=== PATIENT | female | born 1995 | race African-American/Black ===

== ENCOUNTER 2019-03-12 04:27 | Emergency (ER) | payer OTHER, SELFPAY ==
--- NOTE | 2019-03-12 04:29 | ED.PREGNANCY ---
HPI - General Chief complaint: Urogenital-Female Stated complaint: 12 wks , bleeding and cramping Time Seen by Provider: 03/12/19 04:29 Source: patient and family Mode of arrival: Ambulatory Limitations: no limitations History of Present Illness HPI Narrative: 23-year-old female nonsmoker with benign medical history presents with her and a chief complaint of a few days of pelvic cramping and spotting. She is a at 12 weeks and has had an unremarkable thus far. She is from [place] and had her care down there LEs are. She states her bleeding started as some brownish spotting yesterday and she has changed 3 pads in the past 24 hours. Her pain comes in waves and at times is very intense and others at [employer] out. She states that moves around her lower pelvis and is not unilateral. She denies provocation or palliation. She is not dizzy nor weak or lightheaded. She denies dysuria, frequency or urgency. MD Complaint: vaginal bleeding Onset (ago): day(s) Pain Consistency: intermittent Location: pelvis Severity: moderate Quality: Aching Radiation: pelvis Relieving factors: none Exacerbating factors: none Associated symptoms: vaginal bleeding Vaginal discharge: none Vaginal bleeding: light Patient : Yes OB History - Current : no complications OB History - Previous Pregnancies: no complications care: followed by OB Related Data : 1 Para: 0 Home Medications Medication Instructions Recorded Confirmed levonorgestrel [Mirena] 52 mg INTRAU #0 ea 10/21/15 Allergies Allergy/AdvReac Type Severity Reaction Status Date / Time No Known Drug Allergies Allergy Verified 03/12/19 06:34 Review of Systems Constitutional Constitutional: Denies chills, Denies fatigue, Denies fever(s), Denies frequent falls, Denies lethargy and Denies weakness Eyes Eyes: Denies change in vision, Denies eye discharge, Denies irritation and Denies loss of vision ENT Ears, Nose, Mouth, and Throat: Denies change in voice, Denies dizziness, Denies neck pain, Denies sore throat and Denies throat swelling Cardiovascular Cardiovascular: Denies chest pain, Denies irregular heart rhythm, Denies lightheadedness, Denies palpitations, Denies dyspnea, Denies dyspnea on exertion and Denies orthopnea Respiratory Respiratory: Denies cough, Denies dyspnea, Denies dyspnea on exertion and Denies wheezing Gastrointestinal Gastrointestinal: Denies abdominal pain, Denies change in bowel habits, Denies diarrhea, Denies nausea and Denies vomiting Genitourinary Genitourinary: Reports abnormal vaginal bleeding, Denies hematuria, Denies flank pain, Denies urinary incontinence and Denies urinary urgency Musculoskeletal Musculoskeletal: Denies back pain, Denies muscle weakness, Denies neck pain, Denies numbness and Denies tingling Integumentary/Breasts Skin/Breast: Denies pruritus, Denies erythema, Denies rash and Denies wounds Neurologic Neurologic: Denies behavioral changes, Denies confusion, Denies dizziness, Denies frequent falls, Denies loss of vision, Denies numbness, Denies tingling and Denies weakness Psychiatric Psychiatric: Denies anxiety, Denies behavioral changes, Denies confusion, Denies depression, Denies homicidal ideation and Denies suicidal ideation Endocrine Endocrine: Denies fatigue, Denies flushing and Denies palpitations Hematologic/Lymphatic Hematologic/Lymphatic: Denies easy bruising Allergic/Immunologic Allergic/Immunologic: Denies urticaria, Denies throat swelling and Denies wheezing PMFSH - Past Medical History Patient : Yes Exam Narrative Exam Narrative: GENERAL: [23] year old patient appears stated age. Well-nourished, well-developed patient, in mild distress. HEAD: Atraumatic. Normocephalic. EYES: Pupils equal round and reactive. Extraocular motions intact. No scleral icterus. No injection or drainage. ENT: Nose without bleeding, purulent drainage. Throat without erythema, tonsillar hypertrophy or exudate. Airway patent. NECK: Trachea midline. Non tender CARDIOVASCULAR: Regular rate and rhythm without murmurs, gallops, or rubs. RESPIRATORY: Clear to auscultation. Breath sounds equal bilaterally. No wheezes, rales, or rhonchi. GASTROINTESTINAL: Abdomen soft, non-tender, nondistended. EXTREMITIES: No edema or joint tenderness. BACK: Nontender without deformity or crepitance. No flank tenderness. NEURO: AOx3. SKIN: No rash or erythema of visible areas Initial Vital Signs Initial Vital Signs: Vital Signs Temperature 98.2 F 03/12/19 04:36 Pulse Rate 87 03/12/19 04:36 Respiratory Rate 15 03/12/19 04:36 Blood Pressure 124/85 03/12/19 04:36 Pulse Oximetry 99 03/12/19 04:36 Course Orders Ordered: ED Orders 03/12/19 04:35 US OB <= 14 weeks fetus Stat 03/12/19 04:43 ABO RH Type Stat Basic Metabolic Panel Stat Complete Blood Count AUTO DIFF Stat HCG Quantitative Stat 03/12/19 05:05 Urinalysis and Microscopic Stat Discontinued Medications Hydrocodone Bitart/Acetaminophen (Vicodin 5/325 Prepack) 1 bottle MISC SEEINSTR ONE Stop: 03/12/19 06:15 Last Admin: 03/12/19 06:29 Dose: 1 bottle Documented by: YAMILE Ondansetron HCl (Zofran Odt Prepack) 1 bottle MISC SEEINSTR ONE Stop: 03/12/19 06:15 Last Admin: 03/12/19 06:29 Dose: 1 bottle Documented by: YAMILE Vital Signs Vital signs: Vital Signs - 8 hr 03/12/19 04:36 Temperature 98.2 F Pulse Rate 87 Respiratory Rate 15 Blood Pressure 124/85 Pulse Oximetry 99 MDM - OB/Uterine Contractions Lab Data Result diagrams: 03/12/19 04:43 03/12/19 04:43 Labs: Lab Results 03/12/19 03/12/19 03/12/19 Range/Units 04:43 04:43 04:43 WBC 5.8 (4.5-11.0) X10^3/uL RBC 4.30 (4.0-5.2) X10^6/uL Hgb 12.2 (12.0-16.0) g/dL Hct 36.1 (36-46) % MCV 83.9 (80-100) fL MCH 28.4 (26-34) PG MCHC 33.9 (30-36) % RDW 17.1 H (11.6-14.8) % Plt Count 196 (150-400) X10^3/uL Neut % (Auto) 69.6 (50-75) % Lymph % (Auto) 20.9 L (25-40) % [place] % (Auto) 8.3 (3-14) % Eos % (Auto) 0.9 L (2-4) % Baso % (Auto) 0.3 (0-2) % Neut # (Auto) 4000 (4266-9025) /uL Lymph # (Auto) 1200 (3530-7306) /uL [place] # (Auto) 500 (0-900) /uL Eos # (Auto) 100 (0-450) /uL Baso # (Auto) 0 (0-100) /uL Sodium (137-145) mmol/L Potassium (3.4-5.1) mmol/L Chloride (98-107) mmol/L Carbon Dioxide (22-32) mmol/L BUN (7-17) mg/dL Creatinine (0.52-1.04) mg/dL Estimated GFR (>60) mL/min BUN/Creatinine Ratio (6-22) Glucose (70-100) mg/dL Calcium (8.4-10.2) mg/dL HCG, Quant 83853 mIU/mL Urine Color Urine Appearance Urine pH (4.5-8.0) Ur Specific [place] (1.000-1.035) Urine Protein (Negative) Urine Glucose (UA) (Negative) g/dL Urine Ketones (NEGATIVE) Urine Occult Blood (Negative) Urine Nitrate (Negative) Urine Bilirubin (NEGATIVE) Urine Urobilinogen (0.2) E.U./dL Ur Leukocyte Esterase (NEGATIVE) Urine RBC (0-5/HPF) Urine WBC (0-5/HPF) Ur Squamous Epith Cells (0-5/HPF) Urine Bacteria (None) Ur Culture Indicated? Blood Type A Positive 03/12/19 03/12/19 Range/Units 04:43 05:05 WBC (4.5-11.0) X10^3/uL RBC (4.0-5.2) X10^6/uL Hgb (12.0-16.0) g/dL Hct (36-46) % MCV (80-100) fL MCH (26-34) PG MCHC (30-36) % RDW (11.6-14.8) % Plt Count (150-400) X10^3/uL Neut % (Auto) (50-75) % Lymph % (Auto) (25-40) % [place] % (Auto) (3-14) % Eos % (Auto) (2-4) % Baso % (Auto) (0-2) % Neut # (Auto) (8648-2792) /uL Lymph # (Auto) (0750-9391) /uL [place] # (Auto) (0-900) /uL Eos # (Auto) (0-450) /uL Baso # (Auto) (0-100) /uL Sodium 136 L (137-145) mmol/L Potassium 3.5 (3.4-5.1) mmol/L Chloride 103 (98-107) mmol/L Carbon Dioxide 22 (22-32) mmol/L BUN 8 (7-17) mg/dL Creatinine 0.50 L (0.52-1.04) mg/dL Estimated GFR > 60.0 (>60) mL/min BUN/Creatinine Ratio 16.0 (6-22) Glucose 98 (70-100) mg/dL Calcium 9.5 (8.4-10.2) mg/dL HCG, Quant mIU/mL Urine Color Yellow Urine Appearance Slightly cloudy Urine pH 5.5 (4.5-8.0) Ur Specific [place] 1.025 (1.000-1.035) Urine Protein Trace H (Negative) Urine Glucose (UA) Negative (Negative) g/dL Urine Ketones Negative (NEGATIVE) Urine Occult Blood 3+ H (Negative) Urine Nitrate Negative (Negative) Urine Bilirubin Negative (NEGATIVE) Urine Urobilinogen 0.2 (0.2) E.U./dL Ur Leukocyte Esterase Negative (NEGATIVE) Urine RBC 30-100/hpf H (0-5/HPF) Urine WBC None seen (0-5/HPF) Ur Squamous Epith Cells 0-1 /hpf (0-5/HPF) Urine Bacteria None seen (None) Ur Culture Indicated? Cult not indicated Blood Type Discharge Plan Departure Patient Disposition: Home Clinical Impression: , spontaneous threatened Instructions: DI for Threatened Activity Restrictions/Additional Instructions: *You have been diagnosed with [ threatened miscarriage ] *What to do: *Take medications as directed *Follow up with your primary care provider in 2-3 days, call for an appointment. Let them know you were seen in the Emergency Department and that we ask that you be seen in follow up *Return to ER if you should have any new, worsening or concerning symptoms, such as [ worsening bleeding (greater than 1 pad per hour), worsening pain, fever >101F or other bothersome symptoms] Prescriptions: No Action levonorgestrel [Mirena] 1 EACH intrauterine device 52 mg INTRAU Qty: 0 RF: 0
--- NOTE | 2019-03-12 04:35 | DI.US.S_ITS ---
PROCEDURE: US OB <= 14 WEEKS FETUS INDICATIONS: CRAMPING, BLEEDING OUTSIDE/PRIOR DATING DATA: Last menstrual period (LMP): 12/18/2018. LMP-based estimated date of delivery (RIMA): 09/24/2019. First dating scan (date and location): 03/12/2019 at . Estimated date of delivery (RIMA) from first dating scan: - . TECHNIQUE: Real-time scanning was performed of the fetus and maternal pelvic organs, with image documentation. Endovaginal scanning was also performed to better visualize the fetus and maternal ovaries. COMPARISON: None. FINDINGS: Embryo: There is an intrauterine gestation sac and pole. The sac is elongated and somewhat irregular. There is no cardiac activity. Based on the crown-rump length, the estimated axial images 6 weeks 0 days. Measurement variability in dating: +/- 4 weeks by LMP, +/- 7 days by mean sac diameter (use before 6 weeks gestation if crown-rump length not able to be measured), +/- 5 days by crown-rump length (up to 8 weeks 6 days gestation), +/- 7 days by crown-rump length (up to 13 weeks 6 days gestation). Maternal organs: Left ovary is not visualized. Right ovary is normal. Limited images through the kidneys demonstrate no hydronephrosis. IMPRESSION: 1. A single intrauterine gestation is present with a pole but no cardiac activity, concerning for demise. Please correlate with sequential serum beta hCG. Dictated by: Dunia Connolly M.D. on 03/12/2019 at 9:28 Approved by: Dunia Connolly M.D. on 03/12/2019 at 9:32
[2019-03-12 04:36] VITALS: BP 124/85; PULSE 87; RESP 15; TEMP 36.8; O2SAT 99; BMI 19.7
[2019-03-12 04:56] LABS: Add Manual Diff / Slide Review NO; Basophils Absolute Auto 0 /uL (0-100); Basophils Percent Auto 0.3 % (0-2); Eosinophils Absolute Auto 100 /uL (0-450); Eosinophils Percent Auto 0.9 % (2-4); Hematocrit 36.1 % (36-46); Hemoglobin 12.2 g/dL (12.0-16.0); Lymphocytes Absolute Auto 1200 /uL (1100-4500); Lymphocytes Percent Auto 20.9 % (25-40); Mean Corpuscular HGB Conc 33.9 % (30-36); Mean Corpuscular Hemoglobin 28.4 PG (26-34); Mean Corpuscular Volume 83.9 fL (80-100); Monocytes Absolute Auto 500 /uL (0-900); Monocytes Percent Auto 8.3 % (3-14); Neutrophils Absolute Auto 4000 /uL (1500-7000); Neutrophils Percent Auto 69.6 % (50-75); Platelet Count 196 X10^3/uL (150-400); Red Cell Distribution Width 17.1 % (11.6-14.8); White Blood Cell Count 5.8 X10^3/uL (4.5-11.0)
[2019-03-12 05:09] LABS: Bacteria Urine None Seen; WBC Urine None Seen (0-5/HPF)
[2019-03-12 05:12] LABS: Blood Urea Nitrogen 8 mg/dL (7-17); Calcium 9.5 mg/dL (8.4-10.2); Carbon Dioxide 22 mmol/L (22-32); Chloride 103 mmol/L (98-107); Estimated Glomerular Filt Rate > 60.0 mL/min (>60); Glucose 98 mg/dL (70-100); HEMOLYSIS < 15 (0-50); Potassium 3.5 mmol/L (3.4-5.1); Sodium 136 mmol/L (137-145)
[2019-03-12 05:18] LABS: Bilirubin Urine UA NEGATIVE (NEGATIVE); Color Urine UA YELLOW; Glucose Urine UA NEGATIVE (Negative); Ketones Urine UA NEGATIVE (NEGATIVE); Leukocyte Esterase Urine UA NEGATIVE (NEGATIVE); Nitrite Urine UA NEGATIVE (Negative); Occult Blood Urine UA 3+ (Negative); Protein Urine UA TRACE (Negative); Specific Gravity Urine UA 1.025 (1.000-1.035); Urobilinogen Urine UA 0.2 E.U./dL (0.2); pH Urine UA 5.5 (4.5-8.0)
[2019-03-12 05:19] LABS: Appearance Urine UA Slightly Cloudy; Culture Indicated Urine Cult Not Indicated; RBC Urine 30-100/HPF (0-5/HPF); Squamous Epithelial Cell Urine 0-1 /HPF (0-5/HPF)
[2019-03-12 05:54] LABS: HCG Quantitative /Beta subunit 15993 mIU/mL
[2019-03-12] MEDS: ONDANSETRON 4 MG ODT PREPACK 1 BOTTLE MISC (06:29)
[2019-03-12] MEDS: HYDROCODONE/ACET 5/325 PREPACK 1 BOTTLE MISC (06:29)
--- NOTE | 2019-03-12 06:53 | PC.NURSE ---
Pt showed me a photo of a handful-size clump of tissue that she said she had just passed in the bathroom. She wanted to speak to doctor. Dr De Luna at bedside, DC instructions reviewed. Pt educated about products of conception and aftercare instructions.
[2019-03-12 06:56] VITALS: BP 116/69; PULSE 90; RESP 16; TEMP 37.1; O2SAT 99
== END 2019-03-12 06:58 | disposition home or self-care (01) ==
PROVIDERS: Emergency Provider Emergency Medicine
DX: O20.0 Threatened abortion (principal); Z3A.12 12 weeks gestation of pregnancy
CPT/HCPCS: 36415; 76801; 76817; 80048; 81001; 84702; 85025; 86900; 86901; 99283; 99284